=== PATIENT | female | born 1995 | race Caucasian/White ===

== ENCOUNTER 2018-04-23 22:00 | Outpatient (CLI) | payer OTHER ==
[2018-04-23 23:30] VITALS: BP 120/69; PULSE 86; RESP 16; TEMP 98.2
--- NOTE | 2018-04-24 07:23 | P.MSEPDOC ---
Presenting Problems - Arrival Data Date of Arrival on Unit: 04/23/18 Time of Arrival on Unit: 21:55 Mode of Transport: Ambulatory - Complaint OB-Reason for Admission/Chief Complaint: Possible Onset of Labor, Pain Comment: lower back and abd pain Medical History - Information : 3 Para: 1 Term: 0 : 1 Abortions: Spontaneous or Elective: 1 Number of Living Children: 1 - Gestational Age Gestational Age by SALLY (wks/days): 38 Weeks and 1 Days Review of Systems - Review of Systems Constitutional: No problems Breast: No problems ENT: No problems Cardiovascular: No problems Respiratory: No problems Gastrointestinal: No problems Genitourinary: No problems Musculoskeletal: No problems Neurological: No problems Skin: No problems Vital Signs - Temperature Temperature: 98.2 F Temperature Source: Temporal Artery Scan - Pulse Right Pulse Rate: 86 Pulse Assessment Method: Pulse Oximetry - Respirations Respiratory Rate: 16 O2 Sat by Pulse Oximetry: 98 - Blood Pressure Right Arm Blood Pressure: 120/69 Blood Pressure Mean: 86 Blood Pressure Source: Automatic Cuff Medical Screen Scoring (Pre) - Cervical Exam Dilation: 1-3 cm = 1 Membranes: Intact - Uterine Contractions Frequency: > 5 minutes apart = 1 Duration: > 40 seconds = 2 Intensity: N/A - Maternal Vital Signs Maternal Temperature: N/A Maternal Blood Pressure: N/A Signs of Preeclampsia: N/A Maternal Respirations: N/A - Assessment Baseline FHR: 130 Heart Rate - NICHD Category: Category I (Normal) = 0 NST: Reactive Position: N/A Station: N/A - Total Score Total Score (Pre): 4 - Level of Risk Level of Risk: Low (0-5) Physician Notification (Pre) - Physician Notified Physician Notified Date: 04/23/18 Physician Notified Time: 22:48 Physician/Practitioner Notifed:: Dr Cabrera - Notification Comment Comment: reported on c/o, reactive fhts, SVE, rare cntrx, vitals, decreased movement throughout the day but +fm in tr, scheduled appt on . orders to d/c home with instructions- do not recheck cervix Disposition - Disposition OB Disposition: Discharge to home Discharge Date: 04/23/18 Discharge Time: 23:00 I agree with the RN Medical Screening Exam: Yes Risk & Benefit of care provided described in d/c instruction: Yes Diagnosis: FALSE LABOR AT OR AFTER 37 COMPLETED WEEKS OF GESTATION
== END 2018-04-23 23:00 | disposition home or self-care (01) ==
LOC: FBPOP 22:00
PROVIDERS: ATTEND Obstetrics & Gynecology
DX: O47.1 False labor at or after 37 completed weeks of gestation (principal); Z3A.38 38 weeks gestation of pregnancy
CPT/HCPCS: 59025; 99213

== ENCOUNTER 2018-04-29 05:50 | Inpatient (IN) | payer BC, OTHER ==
[2018-04-29] MEDS ORDERED: CARBOPROST TROMETHAMINE 250 MCG/ML 1 ML AMP IM PRN (05:56)
[2018-04-29] MEDS ORDERED: TERBUTALINE 1 MG/ML VIAL SQ PRN (05:56)
[2018-04-29] MEDS ORDERED: OXYTOCIN 10 UNIT/ML 1 ML VIAL IM PRN (05:56)
[2018-04-29] MEDS ORDERED: METHYLERGONOVINE 0.2 MG/ML 1 ML AMP IM PRN (05:56)
[2018-04-29] MEDS ORDERED: LIDOCAINE 1% (PF) 10 MG/ML (30 ML SDV) SQ PRN (05:56)
[2018-04-29] MEDS ORDERED: OXYTOCIN 20 UNITS/1000 ML NS 1,000 ML IV SCH ×2 (06:00→13:30)
[2018-04-29 06:05] VITALS: BMI 34.0
[2018-04-29 06:12] LABS: Anisocytosis Slight; Basophils % (A) 0 %; Eosinophils # (A) 0.1 k/uL (0-0.7); Eosinophils % (A) 1 %; HCT 35.1 % (34.0-46.0); Lymphocytes # (A) 2.4 k/uL (1.0-4.8); Lymphocytes % (A) 22 %; MCH 27.4 pg (25.0-35.0); MCHC 34.1 g/dL (31.0-37.0); MCV 80.3 fL (80.0-100.0); Mean Platelet Volume 9.4; Monocytes # (A) 0.5 k/uL (0-1.0); Monocytes % (A) 4 %; Neutrophils % (A) 72 %; Platelet Count 159 k/uL (150-450); RBC 4.37 m/uL (3.80-5.40); RDW 16.6 % (11.5-15.5); WBC 11.2 k/uL (3.8-10.6)
[2018-04-29] MEDS: LACTATED RINGERS 1,000 ML IV SCH ×2 (06:17→09:55)
[2018-04-29] MEDS ORDERED: ROPIVACAINE 100 MG, fentaNYL (PF) 200 MCG in SODIUM CHLORIDE 0.9% 76 ML EPIDURAL ONE (09:58)
[2018-04-29] MEDS ORDERED: WITCH HAZEL 1 EACH MED..PAD TOPICAL PRN (13:27)
[2018-04-29] MEDS ORDERED: ZOLPIDEM 5 MG TAB PO PRN (13:27)
[2018-04-29] MEDS ORDERED: LANOLIN CREAM 5 GM TUBE TOPICAL PRN (13:27)
[2018-04-29] MEDS ORDERED: diphenhydrAMINE 50 MG/ML 1 ML VIAL IVP PRN ×2 (13:27)
[2018-04-29] MEDS ORDERED: SIMETHICONE 80 MG CHEWABLE PO PRN (13:27)
[2018-04-29] MEDS ORDERED: ACETAMINOPHEN TAB 325 MG TAB PO PRN (13:27)
[2018-04-29] MEDS ORDERED: diphenhydrAMINE 25 MG CAP PO PRN (13:27)
[2018-04-29] MEDS ORDERED: BENZOCAINE/MENTHOL SPRAY 1 GM/SPRAY AEROSOL TOPICAL PRN (13:27)
[2018-04-29] MEDS ORDERED: HYDROCORTISONE 2.5% RECTAL CREAM 30 GM TUBE RECTAL PRN (13:27)
[2018-04-29] MEDS ORDERED: diphenhydrAMINE 50 MG CAP PO PRN (13:27)
[2018-04-29] MEDS ORDERED: Rhogam IMMUNE GLOBULIN 1,500 UNIT/1 ML IM ONE (14:17)
--- NOTE | 2018-04-29 15:47 | P.HPOB ---
History of Present Illness H&P Date: 04/29/18 Chief Complaint: Intrauterine at 39 weeks': Induction of labor Patient is a 23-year-old at 39 weeks gestation who arrives for induction of labor. Her course was generally unremarkable and she is feeling well at this time. Pertinent labs did include be negative blood type rubella immune hepatitis B surface antigen as well as RPR and HIV were all negative her Rh antibody was also negative. She did have a history of maternal hemorrhage with her last baby. Currently she is diet related to 3 cm 80% effaced -2 station. Artificial rupture membranes was performed and clear fluid is noted. We'll plan Pitocin augmentation of labor and she plans to use epidural for analgesia. Assessment intrauterine at term. Plan expect spontaneous vaginal delivery. Past Medical History Past Medical History: Asthma, GERD/Reflux Additional Past Medical History / Comment(s): frequent nausea History of Any Multi-Drug Resistant Organisms: None Reported Past Surgical History: No Surgical Hx Reported Additional Past Surgical History / Comment(s): D & C Past Anesthesia/Blood Transfusion Reactions: No Reported Reaction Past Psychological History: Anxiety, Bipolar, Depression Smoking Status: Never smoker Past Alcohol Use History: None Reported Past Drug Use History: None Reported Additional Drug Use History / Comment(s): BAT in EC = neg. - Past Family History Mother Family Medical History: Deep Vein Thrombosis (DVT) Father Family Medical History: Cancer Medications and Allergies Home Medications Medication Instructions Recorded Confirmed Type Pnv,Calcium 72/Iron/Folic Acid 1 each PO HS 03/06/16 04/29/18 History [ Plus Tablet] Allergies Allergy/AdvReac Type Severity Reaction Status Date / Time No Known Allergies Allergy Verified 04/29/18 05:55 Exam Osteopathic Statement: *. No significant issues noted on an osteopathic structural exam other than those noted in the History and Physical/Consult. Vital Signs Temp Pulse Resp BP Pulse Ox 04/29/18 13:44 98.6 F 85 17 117/62 96 04/29/18 13:14 75 16 116/59 04/29/18 12:44 95 18 118/63 04/29/18 12:29 85 17 118/69 04/29/18 12:14 86 19 119/71 04/29/18 11:59 75 17 123/64 97 04/29/18 11:44 98.4 F 83 18 121/68 97 04/29/18 05:54 97.7 F 89 16 135/90 97 Intake and Output 04/29/18 04/29/18 04/29/18 06:59 14:59 22:59 Other: # Voids 1 1 Weight 95.708 kg - OBG Physical Exam Breast: both: normal (no masses) Abdomen: bowel sounds normal, no diffuse tenderness, no bruit present, no guarding noted, no hepatomegaly, no splenomegaly, no mass Vulva: both: normal Vagina: normal moisture, no discharge Cervix: no lesion, no discharge Uterus: normal size, normal contour Adnexa: both: normal Anus/Rectum: normal perianal skin, no rectal mass, no hemorrhoids, heme negative Results Result Diagrams: 04/29/18 06:01 Abnormal Lab Results - Last 24 Hours (Table) 04/29/18 Range/Units 06:01 WBC 11.2 H (3.8-10.6) k/uL RDW 16.6 H (11.5-15.5) % Neutrophils # 8.0 H (1.3-7.7) k/uL
[2018-04-30] MEDS: SENNOSIDES-DOCUSATE SODIUM 1 EACH TAB PO SCH ×3 (00:14→19:58)
[2018-04-30] MEDS: IBUPROFEN 600 MG TAB PO PRN ×2 (04:25→12:58)
[2018-04-30 06:54] LABS: Anisocytosis Slight; Basophils % (A) 0 %; Eosinophils % (A) 0 %; HCT 32.4 % (34.0-46.0); HGB 10.9 gm/dL (11.4-16.0); Lymphocytes # (A) 1.6 k/uL (1.0-4.8); Lymphocytes % (A) 16 %; MCH 27.3 pg (25.0-35.0); MCHC 33.6 g/dL (31.0-37.0); MCV 81.2 fL (80.0-100.0); Mean Platelet Volume 9.5; Monocytes # (A) 0.4 k/uL (0-1.0); Monocytes % (A) 4 %; Neutrophils # (A) 7.8 k/uL (1.3-7.7); Neutrophils % (A) 79 %; Platelet Count 131 k/uL (150-450); RBC 3.99 m/uL (3.80-5.40); RDW 16.7 % (11.5-15.5); WBC 9.9 k/uL (3.8-10.6)
--- NOTE | 2018-04-30 11:25 | P.DS ---
Providers Date of admission: 04/29/18 05:50 Expected date of discharge: 04/30/18 Attending physician: Stanislav Minaya Primary care physician: Stated None Hospital Course: Patient doing very well day 1. She is involuting, voiding, and she is tolerating her diet. She voices no complaints. Vital signs stable afebrile. Heart regular, lungs clear, extremities without pain. Abdomen soft, uterus is firm and lochia is reported be light. Assessment day 1. Plan discharged home follow up with me in 6 weeks. Prescription for Motrin dispensed 40 to her pharmacy discharge instructions were thoroughly reviewed. All questions are answered for her prior to her discharge. Patient Condition at Discharge: Good Plan - Discharge Summary New Discharge Prescriptions: No Action Pnv,Calcium 72/Iron/Folic Acid [ Plus Tablet] 1 each PO HS Discharge Medication List Pnv,Calcium 72/Iron/Folic Acid [ Plus Tablet] 1 each PO HS 03/06/16 [ History]
[2018-05-01 09:19] VITALS: BP 120/69; PULSE 74; RESP 18; TEMP 97.8
[2018-05-01] MEDS: SENNOSIDES-DOCUSATE SODIUM 1 EACH TAB PO SCH (09:19)
== END 2018-05-01 12:10 | disposition home or self-care (01) | DRG 775 ==
LOC: 4FBP 05:50
PROVIDERS: ADMIT Obstetrics & Gynecology; ATTEND Obstetrics & Gynecology
PROC: 10E0XZZ Delivery of Products of Conception, External Approach (ICD-10-PCS; principal; 2018-04-30)
PROC: 00HU33Z Insertion of Infusion Device into Spinal Canal, Percutaneous Approach (ICD-10-PCS; principal; 2018-04-30)
PROC: 10907ZC Drainage of Amniotic Fluid, Therapeutic from Products of Conception, Via Natural or Artificial Opening (ICD-10-PCS; principal; 2018-04-30)
PROC: 3E0R3NZ Introduction of Analgesics, Hypnotics, Sedatives into Spinal Canal, Percutaneous Approach (ICD-10-PCS; principal; 2018-04-30)
DX: O80 Encounter for full-term uncomplicated delivery (principal); Z3A.39 39 weeks gestation of pregnancy; Z37.0 Single live birth
CPT/HCPCS: 85025; 85461; 88307